=== PATIENT | male | born 1990 | race Caucasian/White ===

== ENCOUNTER 2022-12-23 07:20 | Day surgery (SDC) | payer BC ==
[2022-12-23] MEDS: OXYMETAZOLINE HCL 0.05% 15ML NAS ONE ×2 (07:42→07:44)
[2022-12-23] MEDS ORDERED: Ringers Lactate 1,000 ML IV ONE (07:42)
[2022-12-23] MEDS ORDERED: FENTANYL CITR 100 MCG/2 ML ONE ×2 (09:07→10:45)
[2022-12-23] MEDS ORDERED: dexAMETHasone 10 MG/ML VIAL ONE (09:07)
[2022-12-23] MEDS ORDERED: propofoL 200 MG/20 ML VIAL IV ONE (09:07)
[2022-12-23] MEDS ORDERED: MIDAZOLAM HCL 2 MG/2 ML INJ ONE (09:07)
[2022-12-23] MEDS ORDERED: NS 0.9% VIAL 0 ML ONE (09:07)
[2022-12-23] MEDS ORDERED: LIDOCAINE 2% MPF 5 ML VIAL ONE (09:13)
[2022-12-23] MEDS ORDERED: ROCURONIUM 50 MG/5 ML VIAL IV ONE (09:27)
[2022-12-23] MEDS ORDERED: LIDOCAINE 1% W/EPI 1:100,000 10 ML VIAL ONE (09:32)
[2022-12-23] MEDS ORDERED: OXYMETAZOLINE HCL 0.05% 15ML NAS ONE (09:33)
[2022-12-23] MEDS ORDERED: NA CHLORIDE 0.9% 500 ML ONE (09:40)
[2022-12-23] MEDS ORDERED: ONDANSETRON 4 MG/2 ML VIAL ONE (10:06)
[2022-12-23] MEDS ORDERED: KETOROLAC 30 MG/ML INJ ONE (11:12)
[2022-12-23 12:14] VITALS: TEMP 97.2
[2022-12-23 12:41] VITALS: BP 136/82; O2SAT 96
--- NOTE | 2022-12-23 13:24 | P.OP ---
Draw String Knotter: NONE,NONE Preoperative diagnosis: Deviated septum, inferior turbinate hypertrophy, nasal obstruction Postoperative diagnosis: Same Primary procedure: Septoplasty Secondary procedure: Submucosal resection bilateral inferior turbinate Anesthesia: General Estimated blood loss: 20 Specimen: Bone and cartilage of septum Findings: Right septal spur, cartilage displacement into the left nasal cavity Operative Technique: The patient was brought to the operating room. He was placed under general anesthesia via oral endotracheal tube. The head of bed was turned 90 degrees. The patient's nasal hairs were trimmed and an exam under anesthesia using a headlight was performed. 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 Additionally there was a large right septal spur more posteriorly. The turbinates were significantly decongested with preoperative treatment using oxymetazoline. The planned incision site, septum and head of the inferior turbinates were injected with 1% lidocaine with epinephrine. A total of 5 mL was used. The patient was draped in standard fashion for nasal surgery. A 15 blade scalpel was used to make a right hemitransfixion incision and bilateral septal flaps were elevated. The right septal flap remained intact throughout dissection including elevation over the large posterior septal spur using a Alejandra elevator. The left septal flap was torn during elevation over the cartilage in the inferior aspect anteriorly. Care was taken to maintain the flap integrity as much as was feasible. The cartilage was gently elevated and mobilized and repositioned close to midline. Taking care to maintain appropriate L strut, a 15 blade was used to incise through the cartilage and portions of the posterior aspect of the septal cartilage were removed using Gordon forceps. Heavy angled scissors was used to incise the bone superior and inferior to the septal spur. This bone fragment was then carefully grasped and removed. The Welch rongeurs were used to trim areas of bone more farah periorly in order to provide better septal position overall. Once adequate bone and cartilage had been removed and the anterior cartilage repositioned in midline, the nasal airway was significantly improved bilaterally. A small incision was made in the head of the right and left inferior turbinate and a Alejandra elevator was used to develop a submucosal pocket with in each of these structures. The Coblator wand was used to ablate and remove the thickened soft tissue in order to reduce the overall size of the turbinates. No closure of the stab incision was required. The nasal cavity was thoroughly irrigated with saline and inspected to ensure hemostasis. All pledgets were removed and pledget counts were confirmed correct. The hemitransfixion incision was then closed in a running fashion using 5-0 fast-absorbing gut sutures. The septal flaps were approximated in a quilting fashion using 5-0 fast-absorbing gut on a Mo needle. Due to the laceration of the left septal flap, in combination with the inferior turbinate reduction and mild mucosal inflammation, decision was made for placement of Adan splints. Splints were placed into the right and left nasal cavity and secured anteriorly using a 4-0 Vicryl suture. The anterior nasal cavity was suctioned. The oral cavity and oropharynx were suctioned using a Yankauer. An orogastric tube was passed for removal of stomach contents. The nasopharynx was reexamined and there was no evidence of active bleeding noted. The procedure was concluded and the patient was returned to care of anesthesia for awakening extubation in the operating room. The patient will be discharged home today in the care of his family and follow- up with Dr. Zamudio in 10 days for removal of septal splints. A prescription for tramadol 50 mg every 6 hours as needed for pain, #12 was sent electronically to the patient's pharmacy. They can contact Dr. Zamudio's office on Monday if additional refills are required. Complications: None Implants: Adan splints Fluids & blood products: Crystalloid, see anesthesia record Transferred to: Recovery Room Condition: Good
== END 2022-12-23 13:15 | disposition home or self-care (01) ==
LOC: OR 07:20
PROVIDERS: ATTEND Otolaryngology
PROC: 09SM0ZZ Reposition Nasal Septum, Open Approach (ICD-10-PCS; principal; 2022-12-23 08:45)
DX: J34.2 Deviated nasal septum (principal); J34.89 Other specified disorders of nose and nasal sinuses; J34.3 Hypertrophy of nasal turbinates
CPT/HCPCS: 88300; 30520; 30140; J2704; J2001; J2250; J3010 ×2; J1100; J2405; J7120; J7050; A4216